=== PATIENT | male | born 1965 | race Caucasian/White ===

== ENCOUNTER 2016-05-19 23:04 | Emergency (ER) | payer BC, OTHER ==
[~2016-05-19] VITALS: Ht 167.6 cm; Wt 90.0 kg
[2016-05-19 23:08] VITALS: Ht 167.6 cm; Wt 90.0 kg
[2016-05-20] MEDS ORDERED: ACETAMINOPHEN 500 MG TAB PO STA (01:29)
--- NOTE | 2016-05-20 01:59 | ERD ---
ER Documentation Chief Complaint Date/Time DATE: 05/20/16 TIME: 01:57 Chief Complaint fever with cough for past 3 days HPI Physical 51-year-old male who presents to the emergency department today with his complaining of fever and cough for past 3 days. States he had Tylenol at 4 PM yesterday. Patient denies any other symptoms. ROS All systems reviewed and are negative except as per history of present illness. Medications Home Meds Active Scripts Guaifenesin-Dextromethorphan* (Robitussin* DM) 100MG/10MG/5ML Syrup, 10 ML PO Q4H Y for COUGH for 7 Days, ML Prov:JOSE MIGUEL TIWARIC 05/20/16 Acetaminophen* (Tylophen*) 500 Mg Capsule, 1 CAP PO Q6H Y for PAIN AND OR ELEVATED TEMP, #30 CAP Prov:JOSE MIGUEL TIWARI PA-C 05/20/16 Ibuprofen* (Motrin*) 600 Mg Tab, 600 MG PO Q6, #30 TAB Prov:JOSE MIGUEL TIWARI PA-C 05/20/16 Oseltamivir Phosphate* (Tamiflu*) 75 Mg Capsule, 75 MG PO BID for 5 Days, CAP Prov:JOSE MIGUEL TIWARIC 05/20/16 Allergies Allergies: Coded Allergies: No Known Allergy (Unverified , 05/19/16) PMhx/Soc Medical and Surgical Hx: pt denies Medical Hx, pt denies Surgical Hx Hx Alcohol Use: No Hx Substance Use: No Hx Tobacco Use: No Smoking Status: Never smoker Physical Exam Vitals Vital Signs Date Time Temp Pulse Resp B/P Pulse Ox O2 Delivery O2 Flow Rate FiO2 05/20/16 01:23 102.7 05/19/16 23:08 103.0 123 18 146/72 99 Physical Exam Const: Nontoxic appearing, no acute distress Head: Atraumatic Eyes: Normal Conjunctiva ENT: Ears TMs normal. Nose no drainage. Throat no erythema no exudate Neck: Full range of motion..~ No meningismus. Resp: Clear to auscultation bilaterally. No absent breath sounds. No wheezing. Cardio: Regular rate and rhythm, no murmurs Abd: Soft, non tender, non distended. Normal bowel sounds Skin: No petechiae or rashes Back: No midline or flank tenderness Ext: No cyanosis, or edema Neur: Awake and alert Psych: Normal Mood and Affect Results 24 hrs Current Medications Medications (Trade) Dose Ordered Sig/Ta Route PRN Reason Start Time Stop Time Status Last Admin Dose Admin Acetaminophen (Tylenol Tab) 1,000 mg ONCE STAT PO 05/20/16 01:29 05/20/16 01:31 DC 05/20/16 01:35 DIAGNOSTIC IMAGING REPORT Patient: DERECK HA : 1965 Age: 51 Sex: M MR #: [id number] DOS: 05/20/16 0000 Ordering MD: JOSE MIGUEL TIWARI PA-C Location: [facility] Room/Bed: PROCEDURE: XR Chest. CLINICAL INDICATION: Fever and cough for 3 days. TECHNIQUE: Single frontal view of the chest was obtained COMPARISON: None FINDINGS: Mild cardiomegaly. Mild atelectasis at the left lung base. There is no pleural effusion or pneumothorax. IMPRESSION: Mild cardiomegaly with mild atelectasis at the left lung base. RPTAT: [facility] Physician Delmis Date Time Electronically viewed and signed by Physician Delmis on 05/20/2016 01:59 RS/ CC: JOSE MIGUEL TIWARI PA-C Procedures/MDM Is a 51-year-old male who presents with department today complaining of fever and cough for the past 3 days. Patient had a temperature of 103 emergency department. He was given Tylenol and I also obtained a chest x-ray. Chest x-ray shows mild cardiomegaly with mild atelectasis at the left lung base. There is no pleural effusion, consolidation or pneumothorax. I did have Dr. Chavarria review the chest x-ray and he is in agreement with the radiology read. Low Suspicion for pneumonia, PE, abscess, pneumothorax. The patient's symptoms only consist of cough and fever and he may be experiencing like symptoms versus viral URI. I will give the patient a prescription for Tamiflu for possible influenza. Also be given a projection for Tylenol, Motrin and Robitussin. At this time the patient is stable for discharge and outpatient management. Patient should follow up with their PCP in the next 1-2 days. They may return to the emergency department sooner for any persistent or worsening of symptoms. Patient understood and agreed with the plan. Discussed the patient with Dr. Chavarria and he is in agreement with the plan. Departure Diagnosis: Primary Impression: Fever Fever type: unspecified Qualified Code: R50.9 - Fever, unspecified fever cause Additional Impression: Cough Condition: Fair JOSE MIGUEL TIWARI PA-C May 20, 2016 01:59
[2016-05-20] MEDS ORDERED: IBUP-1542 PO (02:59)
[2016-05-20] MEDS ORDERED: ACET500C5 PO (02:59)
[2016-05-20] MEDS ORDERED: OSLT75C PO (02:59)
[2016-05-20] MEDS ORDERED: UDROBDM PO (03:00)
[2016-05-20 03:14] VITALS: BP 132/76; PULSE 98; RESP 18; TEMP 98.9
== END 2016-05-20 03:14 | disposition home or self-care (01) ==
LOC: FTE 23:04
DX: R50.9 Fever, unspecified (principal); R05 Cough
CPT/HCPCS: 71010; Z7502; Z7610